=== PATIENT | female | born 1985 | race Two or more races ===

== ENCOUNTER → 2017-06-02 | Emergency (ER) | payer OTHER ==
[~2017-06-02] VITALS: Ht 157.5 cm; Wt 52.2 kg
[~2017-06-02] MED LIST: AMOXICILLIN500 MG
== END | disposition home or self-care (01) ==
LOC: ER 14:02
DX: K59.00 Constipation, unspecified (principal); R14.0 Abdominal distension (gaseous)

== ENCOUNTER 2019-05-21 09:54 | Emergency (ER) | payer OTHER ==
[~2019-05-21] VITALS: Ht 157.5 cm; Wt 49.9 kg
== END 2019-05-21 11:56 | disposition home or self-care (01) ==
LOC: ER 09:54
DX: J03.90 Acute tonsillitis, unspecified (principal)

== ENCOUNTER 2023-04-05 05:51 | Emergency (ER) | payer OTHER ==
[~2023-04-05] VITALS: Ht 154.9 cm; Wt 49.9 kg
[2023-04-05 07:52] LABS: HEMATOCRIT 38.7 % (36.0-45.00); HEMOGLOBIN 13.6 g/dL (12.0-15.00); MEAN CELL VOLUME 87.9 fL (80.00-100.00); MEAN CORPUSCULAR HEMOGLOBIN 30.9 pg (27.00-32.0); MEAN CORPUSCULAR HGB CONC 35.2 g/dl (32.0-36.0); PLATELET COUNT 202 K/uL (150-450); RED BLOOD COUNT 4.41 M/uL (4.00-6.00); RED CELL DISTRIBUTION WIDTH 12.7 % (11.5-14.5)
[2023-04-05 08:07] LABS: ANION GAP 10 (10.0-20.0); BLOOD UREA NITROGEN 13 mg/dL (7-18); BUN CREA RATIO 26 (7.0-25.0); CALCIUM 9.4 mg/dL (8.5-10.1); CARBON DIOXIDE 26 mEq/L (21-32); CHLORIDE 108 mmol/L (98-107); GLUCOSE FASTING 99 mg/dL (65-100); OSMOLALITY SERUM 280 MOSM/KG (275-295); POTASSIUM 4.01 mEq/L (3.5-5.1); SODIUM 140 mmol/L (136-145)
[2023-04-05 08:16] LABS: HCG QUANTITATIVE < 1 mUI/mL (1-3)
[2023-04-05 09:31] LABS: URINE APPEARANCE Clear; URINE BILIRRUBIN Negative (NEGATIVE); URINE BLOOD Negative; URINE COLOR Yellow; URINE GLUCOSE Negative (NEGATIVE); URINE LEUKOCYTE Negative; URINE NITRATE Negative; URINE PROTEIN Negative (NEGATIVE); URINE UROBILINOGEN 0.2 E.U./dl
[2023-04-05 09:35] LABS: URINE BACTERIA 127.2 uL (0.0-1933); URINE EPITHELIAL CELLS 3.2 uL (0.0-38.8); URINE RBC 10.7 uL (0.0-20.8); URINE WBC 11.1 uL (0.0-23.2)
== END 2023-04-05 11:58 | disposition home or self-care (01) ==
LOC: ER 05:51
PROVIDERS: General Practice
DX: R42 Dizziness and giddiness (principal); R11.10 Vomiting, unspecified